=== PATIENT | male | born 1980 | race Caucasian/White ===

== ENCOUNTER 2016-10-25 16:11 | Emergency (ER) | payer OTHER ==
[~2016-10-25] VITALS: Ht 175.3 cm; Wt 70.9 kg
[~2016-10-25 16:11] MED LIST: ALBUAER INH; GABA800T PO; MIRT30TA3 PO; MULT-506 PO; NAPR1TAB9 PO; PROB1CAP41 PO
[2016-10-25 16:33] VITALS: TEMP 36.8; Ht 175.3 cm; Wt 70.9 kg
--- NOTE | 2016-10-25 16:55 | DIAGNOSTIC IMAGING REPORT ---
CT HEAD WITHOUT CONTRAST (CT) CLINICAL HISTORY: Head pain. Head trauma. COMPARISON STUDY: 07/16/2013 TECHNIQUE: Axial CT of the brain is performed from the vertex to the skull base. IV contrast was not administered for this examination. CT DOSE: 687.98 mGy.cm FINDINGS: No intra or extra-axial mass lesions are visualized. There is no CT evidence of acute cortical infarction. There is no evidence of midline shift. There is no acute hemorrhage. No calvarial fractures are visualized. There is frontal scalp edema. There is no evidence of pathologic ventricular dilatation. There is no evidence of acute sinusitis IMPRESSION: Frontal scalp edema. No evidence of acute intracranial injury. Electronically signed by: Toan Jiang M.D. 10/25/2016 4:53 PM Dictated Date/Time: 10/25/2016 4:52 PM
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
[2016-10-25] MEDS ORDERED: NRN800 PO (17:22)
[2016-10-25 17:32] VITALS: BP 124/62; PULSE 72; O2SAT 96
[2016-10-25] MEDS ORDERED: ACET-1257 PO (21:59)
[2016-10-25] MEDS ORDERED: HYDR50CA2 PO (23:17)
[2017-01-01] MEDS ORDERED: AMOX1TAB43 PO (12:14)
== END 2016-10-25 18:06 | disposition home or self-care (01) ==
LOC: EDBD 16:11 → C.EDD 16:12
DX: S06.0X0A Concussion without loss of consciousness, initial encounter (principal); S00.211A Abrasion of right eyelid and periocular area, initial encounter; W01.0XXA Fall on same level from slipping, tripping and stumbling without subsequent striking against object, initial encounter; K21.9 Gastro-esophageal reflux disease without esophagitis; F90.9 Attention-deficit hyperactivity disorder, unspecified type; F32.9 Major depressive disorder, single episode, unspecified; F41.9 Anxiety disorder, unspecified; M08.00 Unspecified juvenile rheumatoid arthritis of unspecified site; F17.200 Nicotine dependence, unspecified, uncomplicated; Z87.828 Personal history of other (healed) physical injury and trauma; Z87.19 Personal history of other diseases of the digestive system; Z98.890 Other specified postprocedural states; Z79.899 Other long term (current) drug therapy; Z83.3 Family history of diabetes mellitus; Z82.49 Family history of ischemic heart disease and other diseases of the circulatory system

== ENCOUNTER → 2016-12-04 | Outpatient (CLI) | payer OTHER ==
[~2016-12-04] MED LIST changes: +ACET-1257 PO; -ALBUAER INH; +AMOX1TAB43 PO; +GADAVIST IV PRN; +HYDR50CA2 PO; +NALT380I IJ; +NRN800 PO
--- NOTE | 2016-12-04 13:20 | DIAGNOSTIC IMAGING REPORT ---
MRI OF THE BRAIN WITHOUT AND WITH IV CONTRAST CLINICAL HISTORY: POST CONCUSSION SYNDROME COMPARISON STUDY: 04/03/2015 TECHNIQUE: Utilizing a 1.5 Ana magnet and dedicated coil, multiplanar, multiecho imaging of the brain was performed pre and postcontrast administration. IV administration of 8.5 mL of Gadavist contrast was uneventful. FINDINGS: Diffusion-weighted images are negative. Signal characteristics of the cerebellar as well as cerebral hemispheres are unremarkable. Ventricular system is midline. Postcontrast images are negative for an enhancing lesion. IMPRESSION: Normal study. No change from the prior exam. Electronically signed by: Claude Dupont M.D. 12/04/2016 1:18 PM Dictated Date/Time: 12/04/2016 1:14 PM
== END | disposition home or self-care (01) ==
LOC: C.MRIBC 12:28
PROVIDERS: ATTEND Psychiatry & Neurology Neurology
DX: F07.81 Postconcussional syndrome (principal)

== ENCOUNTER 2016-12-29 20:12 | Inpatient (IN) | payer OTHER ==
[~2016-12-29] VITALS: Ht 175.3 cm; Wt 73.4 kg
[~2016-12-29 20:12] MED LIST changes: -AMOX1TAB43 PO; -GADAVIST IV PRN; -NALT380I IJ
[2016-12-29] MEDS ORDERED: CEFTRIAXONE SOD INJ 1 GM ADDVIAL IV STA (21:06)
[2016-12-29] MEDS ORDERED: VANCOMYCIN INJ 1,300 MG in SODIUM CHLORIDE 0.9% 500ML 500 ML IV STA (21:06)
[2016-12-29] MEDS ORDERED: VANCOMYCIN INJ 1,300 MG in SODIUM CHLORIDE 0.9% 250ML 250 ML IV STA (21:13)
[2016-12-29 21:22] LABS: BASO % 0.4 %; BASO ABS # 0.04 K/uL (0-0.2); COMPLETE YES; EOS % 1.4 %; HEMATOCRIT 41.7 % (42-52); IG% 0.3 %; LYMPH % 20.3 %; LYMPH ABS # 2.28 K/uL (1.2-3.4); MEAN CELL VOLUME 90.3 fL (80-100); MEAN CORPUSCULAR HEMOGLOBIN 30.5 pg (25-34); MEAN CORPUSCULAR HGB CONC 33.8 g/dl (32-36); MEAN PLATELET VOLUME 9.5 fL (7.4-10.4); NEUT % 64.6 %; PLATELET COUNT 246 K/uL (130-400); RED BLOOD COUNT 4.62 M/uL (4.7-6.1); WHITE BLOOD COUNT 11.21 K/uL (4.8-10.8)
[2016-12-29] MEDS ORDERED: hydrOXYzine HCL 25 MG TAB PO STA (21:27)
[2016-12-29] MEDS ORDERED: KETOROLAC TROMETHAMINE 30 MG/ML VIAL IV STA (21:27)
[2016-12-29] MEDS ORDERED: NALT380I IJ (21:31)
[2016-12-29 21:38] LABS: BUN/CREATININE RATIO 11.5 (10-20); CREATININE 0.97 mg/dl (0.60-1.40); POTASSIUM 3.9 mmol/L (3.5-5.1)
[2016-12-29 21:41] LABS: ALB/GLOB RATIO 0.9 (0.9-2)
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
[2016-12-29 21:50] LABS: PARTIAL THROMBOPLASTIN RATIO 1.3; PROTHROMBIN TIME (PATIENT) 10.6 SECONDS (9.0-12.0)
--- NOTE | 2016-12-29 22:23 | DIAGNOSTIC IMAGING REPORT ---
ULTRASOUND LEFT VENOUS DOPP LOWER EXT UNILAT CLINICAL HISTORY: Left leg swelling COMPARISON STUDY: No previous studies for comparison. FINDINGS: Real-time and color flow Doppler imaging were performed. Flow was seen within the femoral, popliteal and calf veins with no intraluminal thrombus demonstrated. There is a left greater saphenous vein thrombus extending from the mid thigh to the mid calf. IMPRESSION: 1. Greater saphenous vein thrombus extending from the mid thigh to the mid calf 2. No evidence of thrombus within the deep system. Electronically signed by: Toan Jiang M.D. 12/29/2016 10:21 PM Dictated Date/Time: 12/29/2016 10:20 PM
[2016-12-29 22:37] LABS: CALCIUM 8.9 mg/dl (8.5-10.1)
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
[2016-12-30] MEDS ORDERED: KETOROLAC TROMETHAMINE 30 MG/ML VIAL IV PRN
[2016-12-30] MEDS ORDERED: hydrOXYzine HCL 25 MG TAB PO PRN
[2016-12-30] MEDS ORDERED: ONDANSETRON INJ 2 MG/ML 2 ML VIAL IV PRN
[2016-12-30] MEDS ORDERED: VANCOMYCIN CONSULT ACTIVE PRN (00:15)
[2016-12-30 01:18] VITALS: BP 121/75; PULSE 68; TEMP 36.6; O2SAT 98; Ht 175.3 cm; Wt 73.4 kg
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
[2016-12-30 05:53] LABS: HEMATOCRIT 39.9 % (42-52); MEAN CELL VOLUME 89.9 fL (80-100); MEAN CORPUSCULAR HEMOGLOBIN 29.7 pg (25-34); MEAN CORPUSCULAR HGB CONC 33.1 g/dl (32-36); MEAN PLATELET VOLUME 9.3 fL (7.4-10.4); PLATELET COUNT 228 K/uL (130-400); RED BLOOD COUNT 4.44 M/uL (4.7-6.1); WHITE BLOOD COUNT 7.77 K/uL (4.8-10.8)
[2016-12-30 06:19] LABS: BUN/CREATININE RATIO 13.9 (10-20); CALCIUM 8.6 mg/dl (8.5-10.1); CREATININE 0.91 mg/dl (0.60-1.40); POTASSIUM 3.9 mmol/L (3.5-5.1)
[2016-12-30 07:26] VITALS: BP 96/55; PULSE 61; TEMP 36.8; O2SAT 97
[2016-12-30] MEDS: [UNRECOGNIZED DRUG - OTHER] SCH ×2 (08:00→15:34)
[2016-12-30] MEDS: VANCOMYCIN INJ 1,000 MG in SODIUM CHLORIDE 0.9% 250ML 250 ML IV SCH ×2 (08:11→15:40)
[2016-12-30] MEDS: MULTIVITAMIN TAB PO SCH (08:12)
[2016-12-30] MEDS: LACTOBACILLUS ACIDOPHILUS (FLORANEX) TAB PO SCH ×3 (08:12→17:23)
[2016-12-30] MEDS: GABAPENTIN 800 MG TAB PO SCH ×4 (08:12→20:57)
[2016-12-30] MEDS: HEPARIN SOD 5000 UNIT/0.5 ML CARP SQ SCH ×2 (08:22→20:58)
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
[2016-12-30] MEDS: ACETAMINOPHEN 325 MG TAB PO PRN ×2 (12:19→18:30)
[2016-12-30 12:27] VITALS: BP 100/48; PULSE 58; TEMP 36.5; O2SAT 96
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
[2016-12-30] MEDS: IBUPROFEN 600 MG TAB PO SCH ×2 (15:40→20:58)
[2016-12-30 15:43] VITALS: BP 103/68; PULSE 50; TEMP 36.7; O2SAT 97
[2016-12-30] MEDS: MIRTAZAPINE TAB 15 MG TAB PO SCH (20:57)
[2016-12-30] MEDS: DICLOFENAC SOD 1% GEL 100 GM TUBE EXT SCH (20:58)
[2016-12-30 23:47] VITALS: BP 127/69; PULSE 59; TEMP 36.3; O2SAT 97
[2016-12-31] MEDS: VANCOMYCIN INJ 1,000 MG in SODIUM CHLORIDE 0.9% 250ML 250 ML IV SCH ×3 (00:16→16:17)
[2016-12-31 06:50] LABS: HEMATOCRIT 41.3 % (42-52); MEAN CELL VOLUME 89.6 fL (80-100); MEAN CORPUSCULAR HEMOGLOBIN 28.6 pg (25-34); MEAN PLATELET VOLUME 9.8 fL (7.4-10.4); PLATELET COUNT 245 K/uL (130-400); RED BLOOD COUNT 4.61 M/uL (4.7-6.1); WHITE BLOOD COUNT 7.56 K/uL (4.8-10.8)
[2016-12-31 07:05] VITALS: BP 107/62; PULSE 63; TEMP 36.4; O2SAT 98
[2016-12-31 07:26] LABS: BUN/CREATININE RATIO 14.8 (10-20); CALCIUM 8.2 mg/dl (8.5-10.1); CREATININE 0.78 mg/dl (0.60-1.40); POTASSIUM 4.4 mmol/L (3.5-5.1)
[2016-12-31] MEDS: GABAPENTIN 800 MG TAB PO SCH ×4 (07:40→19:55)
[2016-12-31] MEDS: LACTOBACILLUS ACIDOPHILUS (FLORANEX) TAB PO SCH ×3 (07:40→16:17)
[2016-12-31] MEDS: [UNRECOGNIZED DRUG - OTHER] SCH ×4 (07:40→23:28)
[2016-12-31] MEDS: MULTIVITAMIN TAB PO SCH (07:40)
[2016-12-31] MEDS: HEPARIN SOD 5000 UNIT/0.5 ML CARP SQ SCH ×2 (07:41→19:57)
[2016-12-31] MEDS: IBUPROFEN 600 MG TAB PO SCH ×3 (07:41→19:55)
[2016-12-31] MEDS: DICLOFENAC SOD 1% GEL 100 GM TUBE EXT SCH ×2 (07:41→19:54)
[2016-12-31] MEDS ORDERED: VANCOMYCIN TROUGH SCH (15:30)
[2016-12-31] MEDS: ACETAMINOPHEN 325 MG TAB PO PRN (16:19)
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
[2016-12-31] MEDS: AMOXICILLIN/CLAVULANATE TAB 875 MG TAB PO SCH (17:08)
[2016-12-31] MEDS: MIRTAZAPINE TAB 15 MG TAB PO SCH (19:56)
[2016-12-31 23:40] VITALS: BP 120/75; PULSE 53; TEMP 36.7; O2SAT 97
[2017-01-01 07:05] LABS: CREATININE 0.89 mg/dl (0.60-1.40)
[2017-01-01] MEDS: [UNRECOGNIZED DRUG - OTHER] SCH (07:05)
[2017-01-01 07:43] VITALS: BP 107/65; PULSE 58; TEMP 36.6; O2SAT 97
[2017-01-01] MEDS: HEPARIN SOD 5000 UNIT/0.5 ML CARP SQ SCH (08:19)
[2017-01-01] MEDS: LACTOBACILLUS ACIDOPHILUS (FLORANEX) TAB PO SCH ×2 (08:20→12:31)
[2017-01-01] MEDS: AMOXICILLIN/CLAVULANATE TAB 875 MG TAB PO SCH (08:20)
[2017-01-01] MEDS: IBUPROFEN 600 MG TAB PO SCH (08:20)
[2017-01-01] MEDS: GABAPENTIN 800 MG TAB PO SCH ×2 (08:20→12:30)
[2017-01-01] MEDS: DICLOFENAC SOD 1% GEL 100 GM TUBE EXT SCH (08:21)
[2017-01-01] MEDS: MULTIVITAMIN TAB PO SCH (08:21)
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
[2017-01-01] MEDS ORDERED: AMOX1TAB43 PO (12:14)
--- NOTE | 2017-01-01 12:27 | Discharge Instructions ---
Discharge Instructions Date of Service Jan 01, 2017. Admission Reason for Admission: Lt Leg Cellulitis,Superficial Vein Thrombosis Discharge Discharge Diagnosis / Problem: Left lower Extremity Cellulitis,Superficila Thrombophlebitis Discharge Goals Goal(s): Prevent Disease Progression Activity Recommendations Activity Limitations: resume your previous activity . Instructions / Follow-Up Instructions / Follow-Up Dr Blanco on 01/06/17 at 11:15 AM Current Hospital Diet Patient's current hospital diet: Regular Diet Discharge Diet Recommended Diet: Regular Diet Pending Studies Studies pending at discharge: no Medical Emergencies . Who to Call and When: Medical Emergencies: If at any time you feel your situation is an emergency, please call 911 immediately. . Non-Emergent Contact Non-Emergency issues call your: Primary Care Provider . Past History Medical & Surgical History: (1) Left leg pain (2) Superficial vein thrombosis (3) Cellulitis and abscess of lower extremity . "Provider Documentation" section prepared by Winsome Kwon. . VTE Core Measure Inpt VTE Proph given/why not?: Unfractionated heparin SQ
[2017-01-01 12:45] VITALS: BP 107/65; PULSE 58; TEMP 36.6; O2SAT 97
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
== END 2017-01-01 14:01 | disposition home or self-care (01) | DRG 300 ==
LOC: C.EDB 20:13 → C.MS2W 23:56
PROVIDERS: ADMIT Family Medicine; ATTEND Internal Medicine
DX: I82.812 Embolism and thrombosis of superficial veins of left lower extremity (principal); L03.116 Cellulitis of left lower limb; S89.8 Other specified injuries of lower leg; B95.7 Other staphylococcus as the cause of diseases classified elsewhere; F32.9 Major depressive disorder, single episode, unspecified; F41.9 Anxiety disorder, unspecified; F11.21 Opioid dependence, in remission; F17.200 Nicotine dependence, unspecified, uncomplicated; Z51.81 Encounter for therapeutic drug level monitoring; Z79.899 Other long term (current) drug therapy; Z83.3 Family history of diabetes mellitus; Z82.49 Family history of ischemic heart disease and other diseases of the circulatory system; V29.9XXS Motorcycle rider (driver) (passenger) injured in unspecified traffic accident, sequela; Y99.8 Other external cause status